=== PATIENT | female | born 1995 | race American Indian/Alaskan Native ===

== ENCOUNTER 2020-04-10 12:15 | Outpatient (CLI) | payer OTHER ==
[2020-04-12 13:21] LABS: BUN/Creatinine Ratio 16; Blood Urea Nitrogen 8 mg/dL (7-17)
[2020-04-12 13:22] LABS: Alanine Aminotransferase 23 units/L (7-56); Albumin 3.4 g/dL (3.9-5); Calcium 8.6 mg/dL (8.4-10.2)
== END 2020-04-13 09:14 | disposition home or self-care (01) ==
LOC: TRG 12:15
PROVIDERS: ATTEND Obstetrics & Gynecology
DX: O47.1 False labor at or after 37 completed weeks of gestation (principal); Z3A.37 37 weeks gestation of pregnancy
CPT/HCPCS: 36415; 80053

== ENCOUNTER 2020-04-27 09:55 | Inpatient (IN) | payer OTHER ==
[2020-04-27] MEDS ORDERED: LIDOCAINE (2%) 20 MG/1 ML VIAL 20 ML MDV INFILTRATI NR (10:06)
[2020-04-27] MEDS ORDERED: AMPICILLIN/NS 2 GM/100 ML 2 GM/100 ML BAG IV ONE (10:06)
[2020-04-27] MEDS ORDERED: METHYLERGONOVINE MALEATE 0.2 MG/ML VIAL IM PRN (10:06)
[2020-04-27] MEDS ORDERED: NALOXONE 0.4 MG/1 ML INJ IV PRN (10:06)
[2020-04-27] MEDS ORDERED: TERBUTALINE 1 MG/1 ML INJ SUB-Q PRN (10:06)
[2020-04-27] MEDS ORDERED: fentaNYL 100 MCG/2 ML INJ IV PRN (10:06)
[2020-04-27] MEDS ORDERED: ACETAMINOPHEN 325 MG TAB PO PRN (10:06)
[2020-04-27] MEDS ORDERED: miSOPROStol 200 MCG TAB PR PRN (10:06)
[2020-04-27] MEDS ORDERED: ePHEDrine SULFATE 50 MG/1 ML INJ IV PRN ×2 (10:30→14:33)
[2020-04-27] MEDS ORDERED: ONDANSETRON 4 MG/2 ML INJ IV PRN (10:30)
[2020-04-27] MEDS ORDERED: BUTORPHANOL 2 MG/1 ML INJ IV PRN (11:00)
[2020-04-27] MEDS ORDERED: OXYTOCIN DRIP 30 UNITS/500 ML BAG IV SCH ×2 (11:00)
[2020-04-27 11:07] LABS: Hematocrit 35.8 % (30.3-42.9); Hemoglobin 12.4 gm/dl (10.1-14.3); Mean Corpuscular HGB Conc 35 % (30-34); Mean Corpuscular Volume 96 fl (79-97); Platelet Count 262 K/mm3 (140-440); Red Blood Count 3.71 M/mm3 (3.65-5.03); Red Cell Distribution Width 13.2 % (13.2-15.2)
[2020-04-27] MEDS: LACTATED RINGERS 1,000 ML IV SCH ×2 (12:01→20:06)
[2020-04-27] MEDS ORDERED: NALOXONE 2 MG/2 ML INJ IV PRN (14:33)
--- NOTE | 2020-04-27 14:34 | Anesthesia Consultation ---
Anesthesia Consult and Med Hx Date of service: 04/27/20 - Airway Anesthetic Teeth Evaluation: Good ROM Head & Neck: Adequate Mental/Hyoid Distance: Adequate Mallampati Class: Class II Intubation Access Assessment: Probably Good - Pulmonary Exam CTA: Yes - Cardiac Exam Cardiac Exam: RRR - Pre-Operative Health Status ASA Pre-Surgery Classification: ASA2 Proposed Anesthetic Plan: Epidural - Pulmonary Hx Asthma: No COPD: No Hx Pneumonia: No - Cardiovascular System Hx Hypertension: No - Central Nervous System Hx Seizures: No Hx Psychiatric Problems: No - Endocrine Hx Renal Disease: No Hx End Stage Renal Disease: No Hx Hypothyroidism: No Hx Hyperthyroidism: No - Hematic Hx Anemia: No Hx Sickle Cell Disease: No - Other Systems Hx Alcohol Use: No
--- NOTE | 2020-04-27 14:53 | Progress Note ---
Labor Epidural - Labor Epidural Start Time: 14:45 Stop Time: 14:50 Performed by:: HELEN FAUSTIN Procedure: Patient is requesting epidural for labor pain. H&P, and labs reviewed. Procedure explained, questions answered, consent obtained. Patient in sitting position with blood pressure cuff and pulse ox on and working. Timeout performed immediately before start of procedure. Sterile betadine prep/drape. 3 mL 1% lidocaine skin wheal at L[3]-L[4]. 18-gauge XIPWIREtead epidural needle advanced to [id number] with saline at [7] cm. Epidural dexmedetomidine [30] mcg administered. Epidural catheter advanced to [12] cm, negative aspiration for blood and csf, negative test dose 3 ml 1.5% lidocaine with epinephrine. Sterile steri-strips and tegaderm applied, followed by tape reinforcement. Patient tolerated procedure well. Oleg VILLALTA
[2020-04-27] MEDS: AMPICILLIN/NS 1 GM/50 ML 1 GM/50 ML BAG IV SCH ×2 (15:19→20:32)
[2020-04-27] MEDS: fentaNYL-BUPIV 2 MCG/ML-0.125% 200 MCG/100 ML BAG EPIDURAL SCH ×2 (15:19→23:21)
--- NOTE | 2020-04-27 15:34 | History and Physical Report ---
History of Present Illness Date of examination: 04/27/20 Date of admission: 04/27/20 09:55 Chief complaint: my water broke History of present illness: Pt is a 25 year old -[place] female JESU 05/01/20 at 39w3d presents with rupture of membranes at 8 am. She reports irregular contractions, and denies vaginal bleeding. She has had care at [facility] since transfer into care at 20 wks complicated by rubella equivocal status, tri chomonas treated with negative test of cure, previous with suspected meconium aspiration syndrome (based on patient description), and GBS positive status. Past History Past Medical History: no pertinent history Past Surgical History: no surgical history [facility] History: trichomonas (treated with negative test of cure ) Family/Genetic History: hypertension, other (renal failure ) Social history: no significant social history - Obstetrical History Expected Date of Delivery: 05/01/20 Actual Gestation: 39 Week(s) 3 Day(s) : 2 Para: 1 Hx # Term Pregnancies: 1 Number of Pregnancies: 0 Spontaneous Abortions: 0 Induced : 0 Number of Living Children: 1 Medications and Allergies Allergies Allergy/AdvReac Type Severity Reaction Status Date / Time Latex, Natural Rubber Allergy Itching Verified 04/27/20 19:03 Home Medications Medication Instructions Recorded Confirmed Last Taken Type No Known Home Medications [No 04/27/20 04/27/20 Unknown History Reported Home Medications] Active Meds: Active Medications Acetaminophen (Tylenol) 650 mg PO Q4H PRN PRN Reason: Pain, Mild (1-3) Butorphanol Tartrate (Stadol) 2 mg IV Q2H PRN PRN Reason: Pain , Severe (7-10) Ephedrine Sulfate (Ephedrine Sulfate) 10 mg IV Q2M PRN PRN Reason: Hypotension Ephedrine Sulfate (Ephedrine Sulfate) 10 mg IV Q2M PRN PRN Reason: Hypotension Fentanyl (Sublimaze) 100 mcg IV Q2H PRN PRN Reason: Pain,Severe (7-10) LABOR PAIN Oxytocin/Sodium Chloride (Pitocin/Ns 30 Unit/500ml) 30 units in 500 mls @ 2 mls/hr IV TITR HUNTER; Protocol Last Titration: 04/27/20 15:06 Dose: 4 ml/hr, 4 mls/hr Documented by: Lactated Ringer's (Lactated Ringers) 1,000 mls @ 125 mls/hr IV DIRECT HUNTER Last Admin: 04/27/20 12:01 Dose: 125 mls/hr Documented by: Oxytocin/Sodium Chloride (Pitocin/Ns 30 Unit/500ml) 30 units in 500 mls @ 40 mls/hr IV TITR HUNTER; Protocol Ampicillin Sodium (Ampicillin/Ns 1 Gm/50 Ml) 1 gm in 50 mls @ 100 mls/hr IV Q4HR HUNTER; Protocol Last Admin: 04/27/20 15:19 Dose: 100 mls/hr Documented by: Fentanyl/Bupivacaine/Sodium Chlor (Fentanyl-Bupiv 2 Mcg/Ml-0.125%) 200 mcg in 100 mls @ 12 mls/hr EPIDURAL TITR HUNTER; Protocol Last Admin: 04/27/20 15:19 Dose: 12 mls/hr Documented by: Methylergonovine Maleate (Methergine) 0.2 mg IM ONCE PRN PRN Reason: Uterine Bleeding Mineral Oil (Mineral Oil) 30 ml PO QHS PRN PRN Reason: Constipation Misoprostol (Cytotec) 800 mcg ND ONCE PRN PRN Reason: Uterine Bleeding Naloxone HCl (Naloxone) 0.1 mg IV Q2MIN PRN PRN Reason: Res Rate </= 8 or 02 SAT < 92% Naloxone HCl (Naloxone) 0.2 mg IV Q5M PRN PRN Reason: Respiratory sedation Ondansetron HCl (Zofran) 4 mg IV Q8H PRN PRN Reason: Nausea And Vomiting Terbutaline Sulfate (Brethine) 0.25 mg SUB-Q ONCE PRN PRN Reason: Hyperstimulation/Hypertonicity Review of Systems All systems: negative - Vital Signs Vital signs: Vital Signs Temp Resp 98.3 F 18 04/27/20 11:59 04/27/20 11:59 Temp Pulse Resp BP Pulse Ox 98.3 F 78 18 104/55 94 04/27/20 11:59 04/27/20 15:32 04/27/20 11:59 04/27/20 15:32 04/27/20 15:29 - Physical Exam Breasts: Positive: deferred Abdomen: Positive: soft (obese, gravid ) Genitourinary (Female): Positive: normal external genitalia Uterus: Positive: enlarged (gravid ) Extremities: Positive: normal - Obstetrical FHR: auscultation normal Uterine Contraction Monitor Mode: External Cervical Dilatation: 8 Cervical Effacement Percentage: 90 station: -2 Uterine Contraction Pattern: Irregular Uterine Tone Measurement Phase: Resting Uterine Contraction Intensity: Moderate Results Result Diagrams: 04/27/20 10:25 Abnormal lab results 04/27/20 Range/Units 10:25 MCH 34 H (28-32) pg MCHC 35 H (30-34) % All other labs normal. Assessment and Plan A: IUP at 39w3d SROM Trichomonas treated with negative test of cure Previous with suspected meconium aspiration syndrome Rubella Equivocal GBS Positive P: Admit to labor and delivery Pitocin induction of labor GBS prophylaxis with Ampicillin Monitor maternal and status
--- NOTE | 2020-04-27 21:37 | Event Note ---
Date: 04/27/20 Pt comfortable with epidural. Category II tracing. SVE: /-2. + bloody show. Continue routine intrapartum care. Closely monitor maternal and status.
[2020-04-27] MEDS ORDERED: MINERAL OIL 30 ML ORAL LIQD PO PRN (22:00)
--- NOTE | 2020-04-28 02:40 | Procedure Note ---
OB Delivery Note - Delivery Date of Delivery: 04/28/20 Surgeon: ARIANNE REID Estimated blood loss: other (400 mL) - Vaginal Delivery presentation: vertex Delivery position: OA Intrapartum events: PROM->1hr before delivery, decreased FHT variability, mult.variable deceleratio Delivery induction: oxytocin Delivery augmentation: pitocin Delivery monitor: external FHT, external uterine Route of delivery: Delivery placenta: spontaneous Episiotomy: none Delivery laceration: other (Bilateral periurethral lacerations hemostatic without repair ) Anesthesia: epidural - Infant A at 1 minute: 6 at 5 minutes: 9 Infant Gender: Male (3218g (7lb 1.5oz) @ 0224 am)
[2020-04-28] MEDS ORDERED: LANOLIN/ZINC/DIMETHICONE (LANSINOH) 7 GM TP PRN ×2 (07:33→08:00)
[2020-04-28] MEDS ORDERED: IBUPROFEN 600 MG TAB PO SCH (07:33)
[2020-04-28] MEDS ORDERED: ONDANSETRON 4 MG/2 ML INJ IV PRN (08:00)
[2020-04-28] MEDS ORDERED: HYDROcodone/ACETAMINOPHEN 5-325 MG TAB PO PRN (08:00)
[2020-04-28] MEDS ORDERED: PROMETHAZINE 25 MG TAB PO PRN (08:00)
[2020-04-28] MEDS ORDERED: OXYTOCIN DRIP 30 UNITS/500 ML BAG IV SCH (08:00)
[2020-04-28] MEDS ORDERED: BENZOCAINE/MENTHOL 20/0.5% TOP SPRAY 56 GM TP PRN (08:00)
[2020-04-28] MEDS ORDERED: PROMETHAZINE 25 MG RECT SUPP PR PRN (08:00)
[2020-04-28] MEDS ORDERED: diphenhydrAMINE 25 MG CAP PO PRN (08:00)
[2020-04-28] MEDS: DOCUSATE SODIUM 100 MG CAP PO SCH ×2 (09:48→22:21)
[2020-04-28] MEDS: FERROUS SULFATE 325 MG TAB PO SCH ×2 (09:48→22:21)
[2020-04-28] MEDS: IBUPROFEN 800 MG TAB PO SCH ×3 (10:00→22:21)
[2020-04-28] MEDS ORDERED: WITCH HAZEL/ GLYCERIN PAD TP PRN (10:00)
[2020-04-28 18:56] LABS: Hematocrit 36.1 % (30.3-42.9); Hemoglobin 11.9 gm/dl (10.1-14.3)
[2020-04-28] MEDS ORDERED: MAGNESIUM HYDROXIDE (MOM) ORAL LIQD UDC PO PRN (22:00)
[2020-04-29] MEDS: IBUPROFEN 800 MG TAB PO SCH (05:54)
[2020-04-29] MEDS ORDERED: MEASLES, MUMPS & RUBELLA 12,500 UNIT/0.5 ML VACCINE SUB-Q ONE (06:36)
[2020-04-29] MEDS ORDERED: DIPHtheria,PERTUSSIS(ACELL),TETANUS VACCINE/PF 0.5 ML VIAL IM ONE (06:37)
--- NOTE | 2020-04-29 09:03 | Progress Note ---
Assessment and Plan A: S/p on 04/28 400 EBL, Hgb 11.9 Periurethral abrasion, no repair VSS Pain well controlled Bottle feeding P: D/c today w/ in office followup in 2w Subjective - Subjective Date of service: 04/29/20 Principal diagnosis: S/p Interval history: PPD1 from Patient reports: appetite normal, voiding normally, pain well controlled, bowel movement, ambulating normally : doing well, bottle feeding Objective - Vital Signs Latest vital signs: Vital Signs Temp Pulse Resp BP BP Pulse Ox 04/29/20 01:30 97.8 F 68 20 104/47 100 04/28/20 16:45 98.4 F 88 18 112/73 100 Intake and Output 04/28/20 04/29/20 04/29/20 23:59 07:59 15:59 Intake Total 480 480 Balance 480 480 Intake: Oral 480 480 Other: Total, Intake Amount 240 240 # Voids Void 1 1 - Exam Breasts: Present: normal Lungs: Present: Normal air movement Abdomen: Present: normal appearance, soft. Absent: distention, tenderness Uterus: Present: normal, firm, fundal height below umbilicus (FF-1). Absent: bogginess, tenderness Extremities: Present: normal
--- NOTE | 2020-04-29 09:05 | Discharge Summary ---
Providers - Providers Date of Admission: 04/27/20 09:55 Date of discharge: 04/29/20 Attending physician: ARIANNE REID 04/28/20 07:33 Consult to Cutting Supervisor [CONS] Routine Reason For Exam: assistance with , SNS Primary care physician: SAGRARIO DREW Hospitalization Reason for admission: active labor, rupture of membranes Delivery: Episiotomy: none Laceration: other (periurethral abrasion) complications: none Discharge diagnosis: IUP at term delivered baby: male Condition at discharge: Good Disposition: DC-01 TO HOME OR SELFCARE Plan - Discharge Medications Prescriptions: Ibuprofen [Motrin] 600 mg PO Q6H PRN #60 tablet PRN Reason: Pain - Provider Discharge Summary Activity: routine, no sex for 6 weeks, no heavy lifting 4 weeks, no strenuous exercise Diet: routine Instructions: routine Additional instructions: [] Smoking cessation referral if applicable(refer to patient education folder for contact #) [] [facility]er to [facility] Call your doctor immediately for: * Fever > 100.5 * Heavy vaginal bleeding ( >1 pad per hour) * Severe persistent headache * Shortness of breath * Reddened, hot, painful area to leg or breast * Drainage or odor from incision. * Keep incision clean and dry at all times and follow doctor's instructions regarding bathing/showering - Follow up plan Follow up: HUSEYIN DUBOIS CNM [Advanced Practice Nurse] - 14 Days (Please call [facility]'s OBGYN to make appointment for follow-up in 2 weeks)
[2020-04-29] MEDS: FERROUS SULFATE 325 MG TAB PO SCH (11:20)
[2020-04-29] MEDS: DOCUSATE SODIUM 100 MG CAP PO SCH (11:20)
--- NOTE | 2020-04-29 12:58 | Post Anesthesia Evaluation ---
- Post Anesthesia Evaluation Patient Participated: Yes Airway Patent: Yes Stable Respiratory Function: Yes Nausea/Vomiting: No Temp > 96.8F: Yes Pain Manageable: Yes Adequeate Hydration: Yes Anesthesia Complications: No Block Receding Appropriately: Yes
[2020-04-29 16:55] VITALS: BP 117/73
== END 2020-04-29 18:40 | disposition home or self-care (01) | DRG 775 ==
LOC: LD 09:55 → OB 04-28 05:59
PROVIDERS: ADMIT Obstetrics & Gynecology; ATTEND Obstetrics & Gynecology
PROC: 10E0XZZ Delivery of Products of Conception, External Approach (ICD-10-PCS; principal; 2020-04-28)
PROC: 3E033VJ Introduction of Other Hormone into Peripheral Vein, Percutaneous Approach (ICD-10-PCS; 2020-04-28)
PROC: 3E0R3BZ Introduction of Anesthetic Agent into Spinal Canal, Percutaneous Approach (ICD-10-PCS; 2020-04-28)
PROC: 00HU33Z Insertion of Infusion Device into Spinal Canal, Percutaneous Approach (ICD-10-PCS; 2020-04-28)
PROC: 3E0234Z Introduction of Serum, Toxoid and Vaccine into Muscle, Percutaneous Approach (ICD-10-PCS; 2020-04-29)
PROC: 3E0134Z Introduction of Serum, Toxoid and Vaccine into Subcutaneous Tissue, Percutaneous Approach (ICD-10-PCS; 2020-04-29)
DX: O99.824 Streptococcus B carrier state complicating childbirth (principal); O76 Abnormality in fetal heart rate and rhythm complicating labor and delivery; O42.02 Full-term premature rupture of membranes, onset of labor within 24 hours of rupture; Z20.828 Contact with and (suspected) exposure to other viral communicable diseases; Z23 Encounter for immunization; Z3A.39 39 weeks gestation of pregnancy; Z37.0 Single live birth; O71.82 Other specified trauma to perineum and vulva; Z82.49 Family history of ischemic heart disease and other diseases of the circulatory system; Z91.040 Latex allergy status
CPT/HCPCS: 36415; 85014; 85018; 85027; 86592; 86850; 86900; 86901; 90471; 90707; 90715; G0378; J0290; J2405; J2590; J7120; U0003